=== PATIENT | female | born 1955 | race Caucasian/White ===

== ENCOUNTER 2017-06-30 17:22 | Inpatient (IN) | payer MEDICARE, MEDICAID ==
[~2017-06-30] VITALS: Ht 5283.9 cm; Wt 73.4 kg
[~2017-06-30 17:22] MED LIST: ASCO500C6 PO; CALC0.2536 PO; CRAN200C5 PO; DEXT1CAP3 PO; DIAZ5TAB PO; DOCU-28 PO; ESCI5TAB PO; GABA600T2 PO; KEP500T PO; LACT1CAP57 PO; LEVO125T PO; LOP25T PO; LURA120T PO; METH1TAB32 PO; MULT-1085 PO; NITR100C6 PO; OMEP-84 PO; POLY17PO10 PO; QUET-1 PO; QUET300T3 PO
[2017-06-30] MEDS ORDERED: normal saline 1000ML IV soln IV ONE (18:20)
[2017-06-30 18:40] LABS: BASOPHILS # (AUTO) 0.1 X10'3 (0-0.2); BASOPHILS % (AUTO) 0.3 % (0-1); EOSINOPHILS % (AUTO) 0.2 % (0-6); HEMATOCRIT 40.1 % (35.0-45.0); HEMOGLOBIN 13.4 g/dl (12.0-16.0); LYMPHOCYTES % (AUTO) 6.5 % (21-51); MEAN CORPUSCULAR HEMOGLOBIN 31.3 PG (27.0-31.0); MEAN CORPUSCULAR HGB CONC 33.4 % (33.0-36.5); MEAN CORPUSCULAR VOLUME 93.6 FL (78-98); MONOCYTES # (AUTO) 0.4 X10'3 (0-0.9); MONOCYTES % (AUTO) 2.9 % (2-12); NEUTROPHILS % (AUTO) 90.1 % (42-75); PLATELET COUNT 344 X10'3 (140-440); RED BLOOD COUNT 4.28 X10'6 (4.20-5.60); RED CELL DISTRIBUTION WIDTH 15.6 % (11.5-14.5); WHITE BLOOD COUNT 15.6 X10'3 (4.5-11.0)
[2017-06-30 18:57] LABS: ALANINE AMINOTRANSFERASE 25 U/L (12-78); ALBUMIN/GLOBULIN RATIO 0.5 (1.1-1.5); ASPARTATE AMINO TRANSFERASE 19 U/L (10-37); BILIRUBIN,TOTAL 0.3 MG/DL (0.1-1.0); BLOOD UREA NITROGEN 51 MG/DL (7-18); BUN/CREATININE RATIO 32.5 (6.6-38.0); CALCIUM 9.7 MG/DL (8.5-10.1); CHLORIDE 107 MMOL/L (99-107); CREATININE 1.57 MG/DL (0.40-0.90); GLUCOSE 140 MG/DL (70-104); MAGNESIUM 2.6 MG/DL (1.5-2.4); TOTAL CARBON DIOXIDE 28.5 MMOL/L (24-32); TOTAL PROTEIN 9.6 G/DL (6.4-8.2); eGFR 33 ML/MIN
[2017-06-30 18:59] LABS: ANION GAP 10 (8-16); SODIUM 145 MMOL/L (135-145)
[2017-06-30 19:26] LABS: CLARITY,URINE SLIGHTLY CLOUDY (Clear); COLOR,URINE YELLOW (Yellow); GLUCOSE, URINE NEGATIVE (Neg); KETONES,URINE NEGATIVE (Neg); LEUKOCYTE ESTERASE ,URINE NEGATIVE (Neg); NITRITES, URINE NEGATIVE (Neg); OCCULT BLOOD,URINE TRACE-INTACT (Neg); PROTEIN,URINE 30 mg/dl (Neg); UROBILINOGEN,URINE 0.2 E.U/dL (0.2-1.0)
[2017-06-30 19:27] LABS: UA COLLECTION TYPE STRAIGHT CATH
[2017-06-30] MEDS ORDERED: piperacillin/tazo 3.375gm/50ml 50 ML IV ONE (19:30)
[2017-06-30 19:40] LABS: BACTERIA,URINE NONE SEEN /HPF (Neg); SQUAMOUS EPITHELIAL CELL,UR MODERATE /LPF (FEW); WBC,URINE 0-4 /HPF (0-4)
[2017-06-30 19:41] LABS: MUCUS STRANDS FEW /LPF (Neg); TRANSITIONAL EPI CELLS,URINE MANY /HPF
[2017-06-30 20:20] LABS: ALKALINE PHOSPHATASE 109 IU/L (46-116)
[2017-06-30] MEDS ORDERED: ipratropium/albuterol 3ml nebule NEB PRN (20:25)
[2017-06-30] MEDS ORDERED: mag hydrox/Alum hydrox/simeth 30ml oral suspension PO PRN (20:25)
[2017-06-30] MEDS ORDERED: magnesium 2GM in 50ml NS 50 ML IV PRN (20:25)
[2017-06-30] MEDS ORDERED: magnesium Cl slow-release 64mg tablet PO PRN (20:25)
[2017-06-30] MEDS ORDERED: potassium Cl 40MEQ/NS 500ml 500 ML IV PRN ×2 (20:25)
[2017-06-30] MEDS ORDERED: acetaminophen 325mg tablet PO PRN (20:25)
[2017-06-30] MEDS ORDERED: albuterol 2.5 MG/3 ML nebule NEB PRN (20:25)
[2017-06-30] MEDS ORDERED: magnesium hydroxide 30ml (MOM) UD suspension PO PRN (20:25)
[2017-06-30] MEDS ORDERED: potassium Cl 20 mEq SR tablet PO PRN ×2 (20:25)
[2017-06-30] MEDS ORDERED: ondansetron/PF 4mg/2ml inj IV PRN (20:25)
[2017-06-30] MEDS ORDERED: magnesium 4gm in 100ml NS 100 ML IV PRN (20:25)
[2017-06-30] MEDS ORDERED: normal saline 1000ml 1,000 ML IV ONE (20:30)
[2017-06-30] MEDS: metoprolol tartrate 25mg tablet PO SCH (20:30)
[2017-06-30 20:31] LABS: TOTAL CELLS COUNTED 100
[2017-06-30 20:32] LABS: ANISOCYTOSIS 1+; PLATELET ESTIMATE NORMAL
[2017-06-30] MEDS: gabapentin 300mg capsule PO SCH (21:00)
[2017-06-30] MEDS ORDERED: diazepam 5mg tablet PO PRN (21:00)
[2017-06-30] MEDS: normal saline 1000ml 1,000 ML IV SCH (21:59)
[2017-06-30] MEDS: levetiracetam 250mg tablet PO SCH (22:38)
[2017-06-30] MEDS: quetiapine 100mg tablet PO SCH (22:41)
[2017-07-01] MEDS: K and/or MAG REPLACEMENT MC SCH (07:10)
[2017-07-01] MEDS: normal saline 1000ml 1,000 ML IV SCH (07:25)
[2017-07-01 07:26] LABS: BASOPHILS % (AUTO) 0.3 % (0-1); EOSINOPHILS # (AUTO) 0.1 X10'3 (0-0.9); EOSINOPHILS % (AUTO) 0.9 % (0-6); HEMATOCRIT 31.8 % (35.0-45.0); HEMOGLOBIN 10.6 g/dl (12.0-16.0); LYMPHOCYTES # (AUTO) 0.8 X10'3 (1.1-4.8); LYMPHOCYTES % (AUTO) 5.2 % (21-51); MEAN CORPUSCULAR HEMOGLOBIN 31.3 PG (27.0-31.0); MEAN CORPUSCULAR HGB CONC 33.2 % (33.0-36.5); MEAN CORPUSCULAR VOLUME 94.1 FL (78-98); MEAN PLATELET VOLUME 8.6 FL (7.4-10.4); MONOCYTES # (AUTO) 0.6 X10'3 (0-0.9); MONOCYTES % (AUTO) 3.7 % (2-12); NEUTROPHILS # (AUTO) 13.3 X10'3 (1.8-7.7); NEUTROPHILS % (AUTO) 89.9 % (42-75); PLATELET COUNT 274 X10'3 (140-440); RED BLOOD COUNT 3.38 X10'6 (4.20-5.60); RED CELL DISTRIBUTION WIDTH 15.5 % (11.5-14.5); WHITE BLOOD COUNT 14.8 X10'3 (4.5-11.0)
[2017-07-01] MEDS: piperacillin/tazo 4.5gm/100ml 100 ML IV SCH ×2 (07:26)
[2017-07-01] MEDS: levetiracetam 250mg tablet PO SCH ×3 (07:27→19:51)
[2017-07-01] MEDS: gabapentin 300mg capsule PO SCH ×3 (07:27→19:51)
[2017-07-01] MEDS: lactobacillus rhamnosus 10,000 MMU CELLS/CAPSULE PO SCH (07:28)
[2017-07-01] MEDS: metoprolol tartrate 25mg tablet PO SCH ×2 (07:28→19:51)
[2017-07-01] MEDS: diazepam 5mg tablet PO SCH (07:28)
[2017-07-01] MEDS: citalopram 20mg tablet PO SCH (07:28)
[2017-07-01] MEDS: pantoprazole 40mg Tablet.DR PO SCH (07:28)
[2017-07-01] MEDS: docusate sod 250mg capsule PO SCH ×2 (07:28→19:50)
[2017-07-01] MEDS: polyethylene glycol 3350 17gm powd pack PO SCH (07:29)
[2017-07-01] MEDS: heparin, porcine 5000 units/ml vial SQ SCH ×2 (07:31→19:53)
[2017-07-01 07:41] LABS: ALANINE AMINOTRANSFERASE 18 U/L (12-78); ALBUMIN 2.1 G/DL (3.4-5.0); ALBUMIN/GLOBULIN RATIO 0.4 (1.1-1.5); ALKALINE PHOSPHATASE 83 IU/L (46-116); ANION GAP 5 (8-16); ASPARTATE AMINO TRANSFERASE 13 U/L (10-37); BILIRUBIN,TOTAL 0.3 MG/DL (0.1-1.0); BLOOD UREA NITROGEN 35 MG/DL (7-18); BUN/CREATININE RATIO 39.8 (6.6-38.0); CALCIUM 8.1 MG/DL (8.5-10.1); CHLORIDE 115 MMOL/L (99-107); CREATININE 0.88 MG/DL (0.40-0.90); GLUCOSE 119 MG/DL (70-104); MAGNESIUM 2.3 MG/DL (1.5-2.4); POTASSIUM 4.1 MMOL/L (3.5-5.1); SODIUM 149 MMOL/L (135-145); TOTAL CARBON DIOXIDE 28.6 MMOL/L (24-32); TOTAL PROTEIN 7.2 G/DL (6.4-8.2); eGFR 65 ML/MIN
[2017-07-01] MEDS: QUETIAPINE 150 MG TAB.SR.24H PO SCH (08:13)
[2017-07-01] MEDS: lurasidone 60mg tablet PO SCH (08:13)
[2017-07-01] MEDS: methenamine hippurate 1gm tablet PO SCH ×2 (08:13→19:51)
[2017-07-01 12:13] VITALS: BP 103/61
[2017-07-01] MEDS: sodium chloride 0.45% 1,000 ML IV SCH (13:33)
[2017-07-01] MEDS: levoFLOXACIN-Levaquin 750MG/D5 150 ML IV SCH (15:29)
[2017-07-01] MEDS ORDERED: pneumococcal 23-VAL P-sac vacc 25 mcg/0.5ml vial IMVAC ONE (16:00)
[2017-07-01] MEDS: metroNIDAZOLE-Flagyl 500mg/NS 100 ML IV SCH ×2 (17:17→23:59)
[2017-07-01 18:00] VITALS: BP 130/67
[2017-07-01] MEDS: quetiapine 100mg tablet PO SCH (19:51)
[2017-07-01 23:30] VITALS: BP 124/69
[2017-07-02] MEDS: sodium chloride 0.45% 1,000 ML IV SCH ×2 (01:51→05:35)
[2017-07-02 05:17] LABS: BASOPHILS % (AUTO) 0.3 % (0-1); EOSINOPHILS # (AUTO) 0.3 X10'3 (0-0.9); EOSINOPHILS % (AUTO) 3.4 % (0-6); HEMATOCRIT 29.2 % (35.0-45.0); HEMOGLOBIN 9.7 g/dl (12.0-16.0); LYMPHOCYTES % (AUTO) 11.9 % (21-51); MEAN CORPUSCULAR HEMOGLOBIN 31.3 PG (27.0-31.0); MEAN CORPUSCULAR HGB CONC 33.2 % (33.0-36.5); MEAN CORPUSCULAR VOLUME 94.3 FL (78-98); MEAN PLATELET VOLUME 9.3 FL (7.4-10.4); MONOCYTES # (AUTO) 0.5 X10'3 (0-0.9); MONOCYTES % (AUTO) 5.3 % (2-12); NEUTROPHILS # (AUTO) 6.8 X10'3 (1.8-7.7); NEUTROPHILS % (AUTO) 79.1 % (42-75); PLATELET COUNT 235 X10'3 (140-440); RED CELL DISTRIBUTION WIDTH 15.4 % (11.5-14.5); WHITE BLOOD COUNT 8.6 X10'3 (4.5-11.0)
[2017-07-02 05:42] LABS: ALANINE AMINOTRANSFERASE 16 U/L (12-78); ALBUMIN 1.9 G/DL (3.4-5.0); ALBUMIN/GLOBULIN RATIO 0.4 (1.1-1.5); ALKALINE PHOSPHATASE 89 IU/L (46-116); ANION GAP 6 (8-16); ASPARTATE AMINO TRANSFERASE 12 U/L (10-37); BILIRUBIN,TOTAL 0.2 MG/DL (0.1-1.0); BLOOD UREA NITROGEN 26 MG/DL (7-18); BUN/CREATININE RATIO 38.8 (6.6-38.0); CHLORIDE 111 MMOL/L (99-107); CREATININE 0.67 MG/DL (0.40-0.90); GLUCOSE 95 MG/DL (70-104); MAGNESIUM 2.1 MG/DL (1.5-2.4); POTASSIUM 3.4 MMOL/L (3.5-5.1); SODIUM 146 MMOL/L (135-145); TOTAL CARBON DIOXIDE 29.4 MMOL/L (24-32); TOTAL PROTEIN 6.7 G/DL (6.4-8.2); eGFR 89 ML/MIN
[2017-07-02 07:00] VITALS: BP 131/66
[2017-07-02] MEDS: pantoprazole 40mg Tablet.DR PO SCH (08:00)
[2017-07-02] MEDS: diazepam 5mg tablet PO SCH (08:00)
[2017-07-02] MEDS: metoprolol tartrate 25mg tablet PO SCH ×2 (08:00→20:00)
[2017-07-02] MEDS: lurasidone 60mg tablet PO SCH (08:00)
[2017-07-02] MEDS: methenamine hippurate 1gm tablet PO SCH ×2 (08:00→20:00)
[2017-07-02] MEDS: docusate sod 250mg capsule PO SCH ×2 (08:00→20:00)
[2017-07-02] MEDS: citalopram 20mg tablet PO SCH (08:00)
[2017-07-02] MEDS: lactobacillus rhamnosus 10,000 MMU CELLS/CAPSULE PO SCH (08:00)
[2017-07-02] MEDS: polyethylene glycol 3350 17gm powd pack PO SCH (08:00)
[2017-07-02] MEDS: QUETIAPINE 150 MG TAB.SR.24H PO SCH (08:00)
[2017-07-02] MEDS: levetiracetam 250mg tablet PO SCH ×3 (08:00→21:00)
[2017-07-02] MEDS: gabapentin 300mg capsule PO SCH ×3 (08:00→21:00)
[2017-07-02] MEDS: K and/or MAG REPLACEMENT MC SCH (08:00)
[2017-07-02] MEDS: levoFLOXACIN-Levaquin 750MG/D5 150 ML IV SCH (08:38)
[2017-07-02] MEDS: heparin, porcine 5000 units/ml vial SQ SCH ×2 (08:58→19:34)
[2017-07-02] MEDS: metroNIDAZOLE-Flagyl 500mg/NS 100 ML IV SCH ×3 (10:12→23:24)
[2017-07-02 11:00] VITALS: BP 96/59
[2017-07-02 18:00] VITALS: BP 156/118
[2017-07-02] MEDS: quetiapine 100mg tablet PO SCH (21:00)
[2017-07-03] VITALS: BP 163/80
[2017-07-03] MEDS ORDERED: LORazepam 2 mg/ml vial IV ONE (00:20)
[2017-07-03] MEDS: sodium chloride 0.45% 1,000 ML IV SCH ×2 (03:00→10:51)
[2017-07-03 07:42] LABS: ALANINE AMINOTRANSFERASE 19 U/L (12-78); ALBUMIN 2.3 G/DL (3.4-5.0); ALBUMIN/GLOBULIN RATIO 0.4 (1.1-1.5); ALKALINE PHOSPHATASE 97 IU/L (46-116); ANION GAP 9 (8-16); ASPARTATE AMINO TRANSFERASE 18 U/L (10-37); BILIRUBIN,TOTAL 0.3 MG/DL (0.1-1.0); BLOOD UREA NITROGEN 16 MG/DL (7-18); BUN/CREATININE RATIO 26.2 (6.6-38.0); CALCIUM 8.9 MG/DL (8.5-10.1); CHLORIDE 111 MMOL/L (99-107); CREATININE 0.61 MG/DL (0.40-0.90); GLUCOSE 97 MG/DL (70-104); MAGNESIUM 2.2 MG/DL (1.5-2.4); POTASSIUM 4.1 MMOL/L (3.5-5.1); SODIUM 147 MMOL/L (135-145); TOTAL CARBON DIOXIDE 26.8 MMOL/L (24-32); TOTAL PROTEIN 7.8 G/DL (6.4-8.2); eGFR > 90 ML/MIN
[2017-07-03 07:51] VITALS: BP 180/88
[2017-07-03] MEDS: levetiracetam 250mg tablet PO SCH ×3 (08:00→21:00)
[2017-07-03] MEDS: K and/or MAG REPLACEMENT MC SCH (08:00)
[2017-07-03] MEDS: methenamine hippurate 1gm tablet PO SCH ×2 (08:00→20:00)
[2017-07-03] MEDS: pantoprazole 40mg Tablet.DR PO SCH (08:00)
[2017-07-03] MEDS: heparin, porcine 5000 units/ml vial SQ SCH ×2 (08:00→22:17)
[2017-07-03] MEDS: metoprolol tartrate 25mg tablet PO SCH ×2 (08:00→20:00)
[2017-07-03] MEDS: QUETIAPINE 150 MG TAB.SR.24H PO SCH (08:00)
[2017-07-03] MEDS: polyethylene glycol 3350 17gm powd pack PO SCH (08:00)
[2017-07-03] MEDS: citalopram 20mg tablet PO SCH (08:00)
[2017-07-03] MEDS: diazepam 5mg tablet PO SCH (08:00)
[2017-07-03] MEDS: gabapentin 300mg capsule PO SCH ×3 (08:00→21:00)
[2017-07-03] MEDS: lurasidone 60mg tablet PO SCH (08:00)
[2017-07-03] MEDS: lactobacillus rhamnosus 10,000 MMU CELLS/CAPSULE PO SCH (08:00)
[2017-07-03] MEDS: docusate sod 250mg capsule PO SCH ×2 (08:00→20:00)
[2017-07-03] MEDS: metroNIDAZOLE-Flagyl 500mg/NS 100 ML IV SCH ×2 (10:04→16:04)
[2017-07-03] MEDS: LORazepam 2 mg/ml vial IV PRN ×2 (10:50→22:17)
[2017-07-03] MEDS: levoFLOXACIN-Levaquin 750MG/D5 150 ML IV SCH (10:54)
[2017-07-03 13:26] VITALS: BP 162/79
[2017-07-03 18:00] VITALS: BP 148/90
[2017-07-03] MEDS: quetiapine 100mg tablet PO SCH (21:00)
[2017-07-04] VITALS (8 sets, daily range): BP systolic 103–160; BP diastolic 74–101
[2017-07-04] MEDS: metroNIDAZOLE-Flagyl 500mg/NS 100 ML IV SCH ×3 (00:33→17:25)
[2017-07-04] MEDS: sodium chloride 0.45% 1,000 ML IV SCH (00:34)
[2017-07-04 04:57] LABS: ALANINE AMINOTRANSFERASE 20 U/L (12-78); ALBUMIN 2.5 G/DL (3.4-5.0); ALBUMIN/GLOBULIN RATIO 0.4 (1.1-1.5); ALKALINE PHOSPHATASE 102 IU/L (46-116); ANION GAP 14 (8-16); ASPARTATE AMINO TRANSFERASE 18 U/L (10-37); BILIRUBIN,TOTAL 0.3 MG/DL (0.1-1.0); BLOOD UREA NITROGEN 12 MG/DL (7-18); BUN/CREATININE RATIO 16.4 (6.6-38.0); CALCIUM 8.9 MG/DL (8.5-10.1); CHLORIDE 108 MMOL/L (99-107); CREATININE 0.73 MG/DL (0.40-0.90); GLUCOSE 85 MG/DL (70-104); POTASSIUM 3.8 MMOL/L (3.5-5.1); SODIUM 147 MMOL/L (135-145); TOTAL CARBON DIOXIDE 24.9 MMOL/L (24-32); TOTAL PROTEIN 8.2 G/DL (6.4-8.2); eGFR 81 ML/MIN
[2017-07-04] MEDS: QUETIAPINE 150 MG TAB.SR.24H PO SCH (08:00)
[2017-07-04] MEDS: diazepam 5mg tablet PO SCH (08:00)
[2017-07-04] MEDS: methenamine hippurate 1gm tablet PO SCH ×2 (08:00→20:00)
[2017-07-04] MEDS: levetiracetam 250mg tablet PO SCH ×3 (08:00→20:44)
[2017-07-04] MEDS: docusate sod 250mg capsule PO SCH ×2 (08:00→20:00)
[2017-07-04] MEDS: K and/or MAG REPLACEMENT MC SCH (08:00)
[2017-07-04] MEDS: gabapentin 300mg capsule PO SCH ×3 (08:00→20:45)
[2017-07-04] MEDS: pantoprazole 40mg Tablet.DR PO SCH (08:00)
[2017-07-04] MEDS: heparin, porcine 5000 units/ml vial SQ SCH ×2 (08:00→19:53)
[2017-07-04] MEDS: levoFLOXACIN-Levaquin 750MG/D5 150 ML IV SCH (08:00)
[2017-07-04] MEDS: metoprolol tartrate 25mg tablet PO SCH ×2 (08:00→20:00)
[2017-07-04] MEDS: citalopram 20mg tablet PO SCH (08:00)
[2017-07-04] MEDS: lurasidone 60mg tablet PO SCH (08:00)
[2017-07-04] MEDS: polyethylene glycol 3350 17gm powd pack PO SCH (08:00)
[2017-07-04] MEDS: lactobacillus rhamnosus 10,000 MMU CELLS/CAPSULE PO SCH (08:00)
[2017-07-04] MEDS ORDERED: MIDAZolam 5mg/5ml vial IV PRN (13:30)
[2017-07-04] MEDS ORDERED: MIDAZolam 5mg/ml 2ml vial ONE (13:30)
[2017-07-04] MEDS ORDERED: fentaNYL/PF 50MCG/1 ML 2ML syringe ONE (13:30)
[2017-07-04] MEDS ORDERED: fentaNYL/PF 50MCG/1 ML 2ML syringe IV PRN (13:30)
[2017-07-04] MEDS ORDERED: LIDOcaine Viscous 15ml cup ONE (13:31)
[2017-07-04] MEDS ORDERED: haloperidol lactate 5mg/ml inj IM PRN (16:55)
[2017-07-04] MEDS: pantoprazole 40 MG vial IV SCH ×2 (17:22→19:53)
[2017-07-04] MEDS: Potassium Cl inj 20 MEQ in dextrose 5%-water 990 ML IV SCH (19:54)
[2017-07-04] MEDS: quetiapine 100mg tablet PO SCH (20:45)
[2017-07-05] VITALS: BP 130/67
[2017-07-05] MEDS: metroNIDAZOLE-Flagyl 500mg/NS 100 ML IV SCH ×4 (00:23→23:21)
[2017-07-05] MEDS: quetiapine 100mg tablet PO SCH ×2 (03:12→20:22)
[2017-07-05 05:55] LABS: ALANINE AMINOTRANSFERASE 23 U/L (12-78); ALBUMIN 2.4 G/DL (3.4-5.0); ALBUMIN/GLOBULIN RATIO 0.5 (1.1-1.5); ALKALINE PHOSPHATASE 287 IU/L (46-116); ANION GAP 11 (8-16); ASPARTATE AMINO TRANSFERASE 26 U/L (10-37); BILIRUBIN,TOTAL 0.4 MG/DL (0.1-1.0); BLOOD UREA NITROGEN 13 MG/DL (7-18); BUN/CREATININE RATIO 19.4 (6.6-38.0); CALCIUM 8.3 MG/DL (8.5-10.1); CHLORIDE 106 MMOL/L (99-107); CREATININE 0.67 MG/DL (0.40-0.90); GLUCOSE 100 MG/DL (70-104); MAGNESIUM 2.1 MG/DL (1.5-2.4); POTASSIUM 3.4 MMOL/L (3.5-5.1); SODIUM 143 MMOL/L (135-145); TOTAL CARBON DIOXIDE 26.4 MMOL/L (24-32); TOTAL PROTEIN 7.6 G/DL (6.4-8.2); eGFR 89 ML/MIN
[2017-07-05] MEDS: heparin, porcine 5000 units/ml vial SQ SCH ×2 (08:00→20:16)
[2017-07-05] MEDS: K and/or MAG REPLACEMENT MC SCH (08:00)
[2017-07-05] MEDS: docusate sod 250mg capsule PO SCH ×2 (08:00→20:00)
[2017-07-05] MEDS: levetiracetam 250mg tablet PO SCH ×2 (08:00→20:20)
[2017-07-05] MEDS: metoprolol tartrate 25mg tablet PO SCH ×2 (08:00→20:00)
[2017-07-05] MEDS: polyethylene glycol 3350 17gm powd pack PO SCH (08:00)
[2017-07-05] MEDS: gabapentin 300mg capsule PO SCH ×2 (08:00→20:20)
[2017-07-05] MEDS: methenamine hippurate 1gm tablet PO SCH ×2 (08:00→20:00)
[2017-07-05] MEDS: lactobacillus rhamnosus 10,000 MMU CELLS/CAPSULE PO SCH (08:00)
[2017-07-05] MEDS: QUETIAPINE 150 MG TAB.SR.24H PO SCH (08:00)
[2017-07-05] MEDS: lurasidone 60mg tablet PO SCH (08:00)
[2017-07-05] MEDS: pantoprazole 40 MG vial IV SCH ×2 (08:00→20:11)
[2017-07-05] MEDS: citalopram 20mg tablet PO SCH (08:00)
[2017-07-05] MEDS: diazepam 5mg tablet PO SCH (08:00)
[2017-07-05 08:10] VITALS: BP 150/108
[2017-07-05] MEDS: levoFLOXACIN-Levaquin 750MG/D5 150 ML IV SCH (09:33)
[2017-07-05 10:26] VITALS: BP 173/89
[2017-07-05 12:00] VITALS: BP 123/78
[2017-07-05] MEDS ORDERED: potassium Cl 40MEQ/NS 500ml 500 ML IV PRN ×2 (12:00)
[2017-07-05] MEDS: Potassium Cl inj 20 MEQ in dextrose 5%-water 990 ML IV SCH ×3 (12:38→23:21)
[2017-07-05] MEDS ORDERED: LORazepam 2 mg/ml vial IV PRN (17:25)
[2017-07-05 20:00] VITALS: BP 169/86
[2017-07-05] MEDS: ziprasidone IM 20mg inj **IM only IM SCH (20:00)
[2017-07-06] VITALS: BP 140/74
[2017-07-06 05:55] LABS: POTASSIUM 3.6 MMOL/L (3.5-5.1)
[2017-07-06 07:16] VITALS: BP 142/61
[2017-07-06] MEDS: citalopram 20mg tablet PO SCH (08:00)
[2017-07-06] MEDS: diazepam 5mg tablet PO SCH (08:00)
[2017-07-06] MEDS: docusate sod 250mg capsule PO SCH ×2 (08:00→20:00)
[2017-07-06] MEDS: K and/or MAG REPLACEMENT MC SCH (08:00)
[2017-07-06] MEDS: ziprasidone IM 20mg inj **IM only IM SCH ×3 (08:00→20:36)
[2017-07-06] MEDS: methenamine hippurate 1gm tablet PO SCH ×2 (08:00→20:00)
[2017-07-06] MEDS: lurasidone 60mg tablet PO SCH (08:00)
[2017-07-06] MEDS: QUETIAPINE 150 MG TAB.SR.24H PO SCH (08:00)
[2017-07-06] MEDS: lactobacillus rhamnosus 10,000 MMU CELLS/CAPSULE PO SCH (08:00)
[2017-07-06] MEDS: metoprolol tartrate 25mg tablet PO SCH ×2 (08:00→20:00)
[2017-07-06] MEDS: heparin, porcine 5000 units/ml vial SQ SCH ×2 (08:00→20:41)
[2017-07-06] MEDS: levetiracetam 250mg tablet PO SCH ×3 (08:00→20:55)
[2017-07-06] MEDS: gabapentin 300mg capsule PO SCH ×3 (08:00→20:54)
[2017-07-06] MEDS: polyethylene glycol 3350 17gm powd pack PO SCH (08:00)
[2017-07-06] MEDS: pantoprazole 40 MG vial IV SCH ×2 (08:28→20:36)
[2017-07-06] MEDS: metroNIDAZOLE-Flagyl 500mg/NS 100 ML IV SCH ×2 (08:30→15:11)
[2017-07-06] MEDS: levoFLOXACIN-Levaquin 750MG/D5 150 ML IV SCH (09:59)
[2017-07-06 12:00] VITALS: BP 155/62
[2017-07-06 12:23] VITALS: BP 155/62
[2017-07-06] MEDS: quetiapine 100mg tablet PO SCH ×2 (14:00→20:55)
[2017-07-06] MEDS: Potassium Cl inj 20 MEQ in dextrose 5%-water 990 ML IV SCH (15:10)
[2017-07-06] MEDS: Protein Shake (high protein) 240ml (8oz) cup PO SCH (18:00)
[2017-07-06 20:00] VITALS: BP 144/84
[2017-07-07] VITALS: BP 158/77
[2017-07-07] MEDS: metroNIDAZOLE-Flagyl 500mg/NS 100 ML IV SCH ×3 (00:11→16:28)
[2017-07-07] MEDS: Potassium Cl inj 20 MEQ in dextrose 5%-water 990 ML IV SCH (05:23)
[2017-07-07 06:35] LABS: ALBUMIN 2.4 G/DL (3.4-5.0); ANION GAP 9 (8-16); BLOOD UREA NITROGEN 8 MG/DL (7-18); BUN/CREATININE RATIO 12.7 (6.6-38.0); CALCIUM 8.5 MG/DL (8.5-10.1); CHLORIDE 103 MMOL/L (99-107); CREATININE 0.63 MG/DL (0.40-0.90); GLUCOSE 111 MG/DL (70-104); MAGNESIUM 1.8 MG/DL (1.5-2.4); POTASSIUM 3.4 MMOL/L (3.5-5.1); SODIUM 140 MMOL/L (135-145); eGFR > 90 ML/MIN
[2017-07-07 07:40] VITALS: BP 131/71
[2017-07-07 07:42] VITALS: BP 131/71
[2017-07-07] MEDS: levetiracetam 250mg tablet PO SCH ×3 (08:00→21:00)
[2017-07-07] MEDS: metoprolol tartrate 25mg tablet PO SCH ×2 (08:00→19:46)
[2017-07-07] MEDS: gabapentin 300mg capsule PO SCH ×3 (08:00→21:00)
[2017-07-07] MEDS: Protein Shake (high protein) 240ml (8oz) cup PO SCH ×3 (08:00→18:00)
[2017-07-07] MEDS: polyethylene glycol 3350 17gm powd pack PO SCH (08:00)
[2017-07-07] MEDS: lurasidone 60mg tablet PO SCH (08:00)
[2017-07-07] MEDS: lactobacillus rhamnosus 10,000 MMU CELLS/CAPSULE PO SCH (08:00)
[2017-07-07] MEDS: K and/or MAG REPLACEMENT MC SCH (08:00)
[2017-07-07] MEDS: methenamine hippurate 1gm tablet PO SCH ×2 (08:00→19:45)
[2017-07-07] MEDS: citalopram 20mg tablet PO SCH (08:00)
[2017-07-07] MEDS: docusate sod 250mg capsule PO SCH ×2 (08:00→19:47)
[2017-07-07] MEDS: diazepam 5mg tablet PO SCH (08:00)
[2017-07-07] MEDS: heparin, porcine 5000 units/ml vial SQ SCH ×2 (08:00→19:30)
[2017-07-07] MEDS: QUETIAPINE 150 MG TAB.SR.24H PO SCH (08:00)
[2017-07-07] MEDS: pantoprazole 40 MG vial IV SCH ×2 (10:21→19:28)
[2017-07-07] MEDS: ziprasidone IM 20mg inj **IM only IM SCH ×2 (10:24→19:28)
[2017-07-07 11:00] VITALS: BP 158/87
[2017-07-07] MEDS: levoFLOXACIN-Levaquin 750MG/D5 150 ML IV SCH (11:45)
[2017-07-07] MEDS ORDERED: Dextrose 10%-water IV solution 1,000 ML IV PRN (13:12)
[2017-07-07] MEDS ORDERED: fat emulsion IV 181.82 ML, MVI, adult No.4 with vit. K 4.55 ML, Trace element-5 inj. 0.... IV SCH ×4 (13:12)
[2017-07-07] MEDS ORDERED: magnesium 4gm in 100ml NS 100 ML IV PRN (13:15)
[2017-07-07] MEDS ORDERED: magnesium 2GM in 50ml NS 50 ML IV PRN (13:15)
[2017-07-07] MEDS ORDERED: magnesium Cl slow-release 64mg tablet PO PRN (13:15)
[2017-07-07 13:55] LABS: ALANINE AMINOTRANSFERASE 20 U/L (12-78); ALBUMIN 2.6 G/DL (3.4-5.0); ALBUMIN/GLOBULIN RATIO 0.5 (1.1-1.5); ALKALINE PHOSPHATASE 201 IU/L (46-116); ANION GAP 10 (8-16); ASPARTATE AMINO TRANSFERASE 23 U/L (10-37); BILIRUBIN,TOTAL 0.3 MG/DL (0.1-1.0); BLOOD UREA NITROGEN 8 MG/DL (7-18); BUN/CREATININE RATIO 12.1 (6.6-38.0); CALCIUM 8.7 MG/DL (8.5-10.1); CHLORIDE 103 MMOL/L (99-107); CREATININE 0.66 MG/DL (0.40-0.90); GLUCOSE 126 MG/DL (70-104); MAGNESIUM 1.8 MG/DL (1.5-2.4); PHOSPHORUS 2.7 MG/DL (2.3-4.5); POTASSIUM 3.4 MMOL/L (3.5-5.1); PREALBUMIN 15.1 MG/DL (19-36); SODIUM 139 MMOL/L (135-145); TRIGLYCERIDES 106 MG/DL (20-135); eGFR 90 ML/MIN
[2017-07-07] MEDS: quetiapine 100mg tablet PO SCH ×2 (14:00→21:00)
[2017-07-07 20:00] VITALS: BP 125/71
[2017-07-08] VITALS: BP 159/80
[2017-07-08] MEDS: metroNIDAZOLE-Flagyl 500mg/NS 100 ML IV SCH ×3 (00:58→15:36)
[2017-07-08 06:42] LABS: ALANINE AMINOTRANSFERASE 18 U/L (12-78); ALBUMIN 2.5 G/DL (3.4-5.0); ALBUMIN/GLOBULIN RATIO 0.5 (1.1-1.5); ALKALINE PHOSPHATASE 165 IU/L (46-116); ANION GAP 9 (8-16); ASPARTATE AMINO TRANSFERASE 14 U/L (10-37); BILIRUBIN,TOTAL 0.3 MG/DL (0.1-1.0); BLOOD UREA NITROGEN 8 MG/DL (7-18); BUN/CREATININE RATIO 11.9 (6.6-38.0); CALCIUM 8.5 MG/DL (8.5-10.1); CHLORIDE 107 MMOL/L (99-107); CREATININE 0.67 MG/DL (0.40-0.90); GLUCOSE 110 MG/DL (70-104); MAGNESIUM 1.8 MG/DL (1.5-2.4); PHOSPHORUS 2.9 MG/DL (2.3-4.5); POTASSIUM 3.7 MMOL/L (3.5-5.1); SODIUM 141 MMOL/L (135-145); TOTAL CARBON DIOXIDE 24.9 MMOL/L (24-32); TOTAL PROTEIN 7.3 G/DL (6.4-8.2); eGFR 89 ML/MIN
[2017-07-08] MEDS: lurasidone 60mg tablet PO SCH (08:00)
[2017-07-08] MEDS: methenamine hippurate 1gm tablet PO SCH ×2 (08:00→20:00)
[2017-07-08] MEDS: docusate sod 250mg capsule PO SCH ×2 (08:00→20:00)
[2017-07-08] MEDS: diazepam 5mg tablet PO SCH (08:00)
[2017-07-08] MEDS: K and/or MAG REPLACEMENT MC SCH (08:00)
[2017-07-08] MEDS: Protein Shake (high protein) 240ml (8oz) cup PO SCH ×3 (08:00→18:00)
[2017-07-08] MEDS: polyethylene glycol 3350 17gm powd pack PO SCH (08:00)
[2017-07-08] MEDS: citalopram 20mg tablet PO SCH (08:00)
[2017-07-08] MEDS: lactobacillus rhamnosus 10,000 MMU CELLS/CAPSULE PO SCH (08:00)
[2017-07-08] MEDS: QUETIAPINE 150 MG TAB.SR.24H PO SCH (08:00)
[2017-07-08] MEDS: levetiracetam 250mg tablet PO SCH ×3 (08:00→20:42)
[2017-07-08] MEDS: metoprolol tartrate 25mg tablet PO SCH ×2 (08:00→20:00)
[2017-07-08] MEDS: gabapentin 300mg capsule PO SCH ×3 (08:00→20:42)
[2017-07-08] MEDS: ziprasidone IM 20mg inj **IM only IM SCH ×2 (09:39→20:23)
[2017-07-08] MEDS: pantoprazole 40 MG vial IV SCH ×2 (09:39→20:24)
[2017-07-08 11:00] VITALS: BP 177/78
[2017-07-08] MEDS: levoFLOXACIN-Levaquin 750MG/D5 150 ML IV SCH (11:31)
[2017-07-08] MEDS: heparin, porcine 5000 units/ml vial SQ SCH ×2 (11:31→20:24)
[2017-07-08 20:00] VITALS: BP 162/84
[2017-07-08] MEDS: nystatin 15 GM powder TP SCH (20:24)
[2017-07-08] MEDS: quetiapine 100mg tablet PO SCH (20:42)
[2017-07-09] VITALS: BP 136/70
[2017-07-09] MEDS: metroNIDAZOLE-Flagyl 500mg/NS 100 ML IV SCH ×3 (00:01→16:30)
[2017-07-09 05:30] LABS: BASOPHILS % (AUTO) 0.4 % (0-1); EOSINOPHILS # (AUTO) 0.3 X10'3 (0-0.9); EOSINOPHILS % (AUTO) 3.5 % (0-6); HEMATOCRIT 39.3 % (35.0-45.0); HEMOGLOBIN 13.1 g/dl (12.0-16.0); LYMPHOCYTES # (AUTO) 1.6 X10'3 (1.1-4.8); LYMPHOCYTES % (AUTO) 17.4 % (21-51); MEAN CORPUSCULAR HEMOGLOBIN 30.9 PG (27.0-31.0); MEAN CORPUSCULAR HGB CONC 33.2 % (33.0-36.5); MEAN CORPUSCULAR VOLUME 92.9 FL (78-98); MEAN PLATELET VOLUME 8.6 FL (7.4-10.4); MONOCYTES # (AUTO) 0.6 X10'3 (0-0.9); NEUTROPHILS # (AUTO) 6.6 X10'3 (1.8-7.7); NEUTROPHILS % (AUTO) 71.7 % (42-75); PLATELET COUNT 210 X10'3 (140-440); RED BLOOD COUNT 4.23 X10'6 (4.20-5.60); RED CELL DISTRIBUTION WIDTH 15.2 % (11.5-14.5); WHITE BLOOD COUNT 9.2 X10'3 (4.5-11.0)
[2017-07-09 06:27] LABS: ALANINE AMINOTRANSFERASE 16 U/L (12-78); ALBUMIN 2.4 G/DL (3.4-5.0); ALBUMIN/GLOBULIN RATIO 0.5 (1.1-1.5); ALKALINE PHOSPHATASE 154 IU/L (46-116); ANION GAP 9 (8-16); ASPARTATE AMINO TRANSFERASE 17 U/L (10-37); BILIRUBIN,TOTAL 0.2 MG/DL (0.1-1.0); BLOOD UREA NITROGEN 18 MG/DL (7-18); CALCIUM 8.8 MG/DL (8.5-10.1); CHLORIDE 105 MMOL/L (99-107); CREATININE 0.62 MG/DL (0.40-0.90); GLUCOSE 125 MG/DL (70-104); MAGNESIUM 1.9 MG/DL (1.5-2.4); PHOSPHORUS 3.5 MG/DL (2.3-4.5); POTASSIUM 3.8 MMOL/L (3.5-5.1); SODIUM 141 MMOL/L (135-145); TOTAL CARBON DIOXIDE 26.6 MMOL/L (24-32); TOTAL PROTEIN 7.5 G/DL (6.4-8.2); eGFR > 90 ML/MIN
[2017-07-09 07:00] VITALS: BP 160/81
[2017-07-09] MEDS: K and/or MAG REPLACEMENT MC SCH (08:00)
[2017-07-09] MEDS: docusate sod 250mg capsule PO SCH ×2 (08:00→21:00)
[2017-07-09] MEDS: lurasidone 60mg tablet PO SCH (08:00)
[2017-07-09] MEDS: fluconazole 100mg tablet PO SCH (08:00)
[2017-07-09] MEDS: polyethylene glycol 3350 17gm powd pack PO SCH (08:00)
[2017-07-09] MEDS: citalopram 20mg tablet PO SCH (08:00)
[2017-07-09] MEDS: levetiracetam 250mg tablet PO SCH ×3 (08:00→21:00)
[2017-07-09] MEDS: gabapentin 300mg capsule PO SCH ×3 (08:00→21:00)
[2017-07-09] MEDS: diazepam 5mg tablet PO SCH (08:00)
[2017-07-09] MEDS: QUETIAPINE 150 MG TAB.SR.24H PO SCH (08:00)
[2017-07-09] MEDS: methenamine hippurate 1gm tablet PO SCH ×2 (08:00→21:00)
[2017-07-09] MEDS: metoprolol tartrate 25mg tablet PO SCH ×3 (08:00→21:00)
[2017-07-09] MEDS: lactobacillus rhamnosus 10,000 MMU CELLS/CAPSULE PO SCH (08:00)
[2017-07-09] MEDS: Protein Shake (high protein) 240ml (8oz) cup PO SCH ×3 (08:00→19:00)
[2017-07-09] MEDS: nystatin 15 GM powder TP SCH ×3 (08:55→20:50)
[2017-07-09] MEDS: ziprasidone IM 20mg inj **IM only IM SCH ×2 (08:56→20:44)
[2017-07-09] MEDS: heparin, porcine 5000 units/ml vial SQ SCH ×2 (08:57→20:42)
[2017-07-09] MEDS: pantoprazole 40 MG vial IV SCH ×2 (08:58→20:46)
[2017-07-09] MEDS: levoFLOXACIN-Levaquin 750MG/D5 150 ML IV SCH (10:15)
[2017-07-09 20:00] VITALS: BP 186/100
[2017-07-09 20:30] VITALS: BP 159/97
[2017-07-09] MEDS: quetiapine 100mg tablet PO SCH (21:00)
[2017-07-09 23:00] VITALS: BP 180/87
[2017-07-09 23:15] VITALS: BP 162/70
[2017-07-10] MEDS: metroNIDAZOLE-Flagyl 500mg/NS 100 ML IV SCH ×3 (01:37→17:26)
[2017-07-10 07:00] VITALS: BP 139/80
[2017-07-10 07:12] LABS: ALBUMIN 2.5 G/DL (3.4-5.0); ANION GAP 9 (8-16); BLOOD UREA NITROGEN 22 MG/DL (7-18); BUN/CREATININE RATIO 37.3 (6.6-38.0); CALCIUM 8.8 MG/DL (8.5-10.1); CHLORIDE 103 MMOL/L (99-107); CREATININE 0.59 MG/DL (0.40-0.90); GLUCOSE 124 MG/DL (70-104); POTASSIUM 4.4 MMOL/L (3.5-5.1); PREALBUMIN 17.5 MG/DL (19-36); SODIUM 138 MMOL/L (135-145); TOTAL CARBON DIOXIDE 26.5 MMOL/L (24-32); eGFR > 90 ML/MIN
[2017-07-10] MEDS: levoFLOXACIN-Levaquin 750MG/D5 150 ML IV SCH (07:54)
[2017-07-10] MEDS: nystatin 15 GM powder TP SCH ×3 (07:59→22:17)
[2017-07-10] MEDS: fluconazole 100mg tablet PO SCH (08:00)
[2017-07-10] MEDS: levetiracetam 250mg tablet PO SCH ×4 (08:00→21:00)
[2017-07-10] MEDS: diazepam 5mg tablet PO SCH (08:00)
[2017-07-10] MEDS: QUETIAPINE 150 MG TAB.SR.24H PO SCH (08:00)
[2017-07-10] MEDS: docusate sod 250mg capsule PO SCH ×2 (08:00→22:12)
[2017-07-10] MEDS: citalopram 20mg tablet PO SCH (08:00)
[2017-07-10] MEDS: lactobacillus rhamnosus 10,000 MMU CELLS/CAPSULE PO SCH (08:00)
[2017-07-10] MEDS: metoprolol tartrate 25mg tablet PO SCH ×2 (08:00→22:12)
[2017-07-10] MEDS: polyethylene glycol 3350 17gm powd pack PO SCH (08:00)
[2017-07-10] MEDS: gabapentin 300mg capsule PO SCH ×3 (08:00→22:15)
[2017-07-10] MEDS: Protein Shake (high protein) 240ml (8oz) cup PO SCH ×3 (08:00→18:56)
[2017-07-10] MEDS: methenamine hippurate 1gm tablet PO SCH ×2 (08:00→22:13)
[2017-07-10] MEDS: lurasidone 60mg tablet PO SCH (08:00)
[2017-07-10] MEDS: K and/or MAG REPLACEMENT MC SCH (08:00)
[2017-07-10] MEDS: pantoprazole 40 MG vial IV SCH ×2 (08:09→21:59)
[2017-07-10] MEDS: heparin, porcine 5000 units/ml vial SQ SCH ×2 (08:24→22:00)
[2017-07-10] MEDS: ziprasidone IM 20mg inj **IM only IM SCH ×2 (08:27→21:59)
[2017-07-10 11:00] VITALS: BP 139/80
[2017-07-10] MEDS ORDERED: hydrALAZINE 20mg/ml inj. IV PRN (11:45)
[2017-07-10 12:00] VITALS: BP 159/108
[2017-07-10] MEDS ORDERED: Dextrose 10%-water IV solution 1,000 ML IV SCH (17:55)
[2017-07-10 20:00] VITALS: BP 162/87
[2017-07-10] MEDS: quetiapine 100mg tablet PO SCH (22:16)
[2017-07-11] VITALS: BP 158/77
[2017-07-11] MEDS: metroNIDAZOLE-Flagyl 500mg/NS 100 ML IV SCH ×3 (00:29→16:40)
[2017-07-11 05:39] LABS: BASOPHILS % (AUTO) 0.2 % (0-1); EOSINOPHILS # (AUTO) 0.5 X10'3 (0-0.9); EOSINOPHILS % (AUTO) 4.5 % (0-6); HEMATOCRIT 39.3 % (35.0-45.0); HEMOGLOBIN 13.1 g/dl (12.0-16.0); LYMPHOCYTES # (AUTO) 1.7 X10'3 (1.1-4.8); LYMPHOCYTES % (AUTO) 14.5 % (21-51); MEAN CORPUSCULAR HEMOGLOBIN 31.2 PG (27.0-31.0); MEAN CORPUSCULAR HGB CONC 33.5 % (33.0-36.5); MEAN CORPUSCULAR VOLUME 93.1 FL (78-98); MEAN PLATELET VOLUME 8.7 FL (7.4-10.4); MONOCYTES # (AUTO) 0.6 X10'3 (0-0.9); MONOCYTES % (AUTO) 4.8 % (2-12); NEUTROPHILS # (AUTO) 8.8 X10'3 (1.8-7.7); PLATELET COUNT 187 X10'3 (140-440); RED BLOOD COUNT 4.22 X10'6 (4.20-5.60); RED CELL DISTRIBUTION WIDTH 15.7 % (11.5-14.5); WHITE BLOOD COUNT 11.6 X10'3 (4.5-11.0)
[2017-07-11 05:47] LABS: ALBUMIN 2.7 G/DL (3.4-5.0); ANION GAP 8 (8-16); BLOOD UREA NITROGEN 23 MG/DL (7-18); BUN/CREATININE RATIO 37.7 (6.6-38.0); CALCIUM 9.2 MG/DL (8.5-10.1); CHLORIDE 104 MMOL/L (99-107); CREATININE 0.61 MG/DL (0.40-0.90); GLUCOSE 135 MG/DL (70-104); POTASSIUM 4.5 MMOL/L (3.5-5.1); SODIUM 140 MMOL/L (135-145); TOTAL CARBON DIOXIDE 27.6 MMOL/L (24-32); eGFR > 90 ML/MIN
[2017-07-11 07:38] VITALS: BP 152/82
[2017-07-11] MEDS: levetiracetam 250mg tablet PO SCH ×3 (08:00→20:39)
[2017-07-11] MEDS: nystatin 15 GM powder TP SCH ×3 (08:00→21:03)
[2017-07-11] MEDS: QUETIAPINE 150 MG TAB.SR.24H PO SCH (08:00)
[2017-07-11] MEDS: methenamine hippurate 1gm tablet PO SCH ×2 (08:00→20:00)
[2017-07-11] MEDS: fluconazole 100mg tablet PO SCH (08:00)
[2017-07-11] MEDS: polyethylene glycol 3350 17gm powd pack PO SCH (08:00)
[2017-07-11] MEDS: metoprolol tartrate 25mg tablet PO SCH ×2 (08:00→20:00)
[2017-07-11] MEDS: lactobacillus rhamnosus 10,000 MMU CELLS/CAPSULE PO SCH (08:00)
[2017-07-11] MEDS: Protein Shake (high protein) 240ml (8oz) cup PO SCH ×3 (08:00→19:00)
[2017-07-11] MEDS: citalopram 20mg tablet PO SCH (08:00)
[2017-07-11] MEDS: K and/or MAG REPLACEMENT MC SCH (08:00)
[2017-07-11] MEDS: lurasidone 60mg tablet PO SCH (08:00)
[2017-07-11] MEDS: gabapentin 300mg capsule PO SCH ×3 (08:00→20:39)
[2017-07-11] MEDS: diazepam 5mg tablet PO SCH (08:00)
[2017-07-11] MEDS: docusate sod 250mg capsule PO SCH ×2 (08:00→20:00)
[2017-07-11] MEDS: levoFLOXACIN-Levaquin 750MG/D5 150 ML IV SCH (10:26)
[2017-07-11] MEDS: pantoprazole 40 MG vial IV SCH ×2 (10:27→21:02)
[2017-07-11] MEDS: heparin, porcine 5000 units/ml vial SQ SCH ×2 (10:33→21:03)
[2017-07-11 11:00] VITALS: BP 160/87
[2017-07-11] MEDS: ziprasidone IM 20mg inj **IM only IM SCH ×2 (11:32→20:55)
[2017-07-11 20:00] VITALS: BP 157/83
[2017-07-11] MEDS: quetiapine 100mg tablet PO SCH (20:40)
[2017-07-12] VITALS: BP 158/74
[2017-07-12] MEDS: metroNIDAZOLE-Flagyl 500mg/NS 100 ML IV SCH ×3 (00:39→16:00)
[2017-07-12 05:12] LABS: BASOPHILS % (AUTO) 0.2 % (0-1); EOSINOPHILS # (AUTO) 0.5 X10'3 (0-0.9); EOSINOPHILS % (AUTO) 3.5 % (0-6); HEMATOCRIT 37.8 % (35.0-45.0); HEMOGLOBIN 12.7 g/dl (12.0-16.0); LYMPHOCYTES # (AUTO) 1.9 X10'3 (1.1-4.8); LYMPHOCYTES % (AUTO) 13.6 % (21-51); MEAN CORPUSCULAR HEMOGLOBIN 31.1 PG (27.0-31.0); MEAN CORPUSCULAR HGB CONC 33.6 % (33.0-36.5); MEAN CORPUSCULAR VOLUME 92.7 FL (78-98); MEAN PLATELET VOLUME 8.3 FL (7.4-10.4); MONOCYTES # (AUTO) 0.6 X10'3 (0-0.9); NEUTROPHILS # (AUTO) 11.2 X10'3 (1.8-7.7); NEUTROPHILS % (AUTO) 78.7 % (42-75); PLATELET COUNT 173 X10'3 (140-440); RED BLOOD COUNT 4.08 X10'6 (4.20-5.60); RED CELL DISTRIBUTION WIDTH 16.2 % (11.5-14.5); WHITE BLOOD COUNT 14.3 X10'3 (4.5-11.0)
[2017-07-12 07:12] VITALS: BP 142/81
[2017-07-12] MEDS: methenamine hippurate 1gm tablet PO SCH (08:00)
[2017-07-12] MEDS: diazepam 5mg tablet PO SCH (08:00)
[2017-07-12] MEDS: citalopram 20mg tablet PO SCH (08:00)
[2017-07-12] MEDS: docusate sod 250mg capsule PO SCH (08:00)
[2017-07-12] MEDS: lurasidone 60mg tablet PO SCH (08:00)
[2017-07-12] MEDS: polyethylene glycol 3350 17gm powd pack PO SCH (08:00)
[2017-07-12] MEDS: gabapentin 300mg capsule PO SCH ×2 (08:00→13:52)
[2017-07-12] MEDS: Protein Shake (high protein) 240ml (8oz) cup PO SCH ×2 (08:00→13:00)
[2017-07-12] MEDS: lactobacillus rhamnosus 10,000 MMU CELLS/CAPSULE PO SCH (08:00)
[2017-07-12] MEDS: fluconazole 100mg tablet PO SCH (08:00)
[2017-07-12] MEDS: QUETIAPINE 150 MG TAB.SR.24H PO SCH (08:00)
[2017-07-12] MEDS: metoprolol tartrate 25mg tablet PO SCH (08:00)
[2017-07-12] MEDS: levetiracetam 250mg tablet PO SCH ×2 (08:00→13:52)
[2017-07-12] MEDS: K and/or MAG REPLACEMENT MC SCH (08:00)
[2017-07-12] MEDS: heparin, porcine 5000 units/ml vial SQ SCH (09:54)
[2017-07-12] MEDS: ziprasidone IM 20mg inj **IM only IM SCH (09:54)
[2017-07-12] MEDS: pantoprazole 40 MG vial IV SCH (09:54)
[2017-07-12] MEDS: nystatin 15 GM powder TP SCH ×2 (10:13→13:53)
[2017-07-12 11:00] VITALS: BP 149/77
[2017-07-12] MEDS: levoFLOXACIN-Levaquin 750MG/D5 150 ML IV SCH (11:29)
[2017-07-12 16:48] LABS: CLARITY,URINE CLEAR (Clear); GLUCOSE, URINE NEGATIVE (Neg); KETONES,URINE NEGATIVE (Neg); LEUKOCYTE ESTERASE ,URINE NEGATIVE (Neg); NITRITES, URINE POSITIVE (Neg); OCCULT BLOOD,URINE LARGE (Neg); PH,URINE 5.5 (4.8-8.0); PROTEIN,URINE 30 mg/dl (Neg); UROBILINOGEN,URINE 0.2 E.U/dL (0.2-1.0)
[2017-07-12 16:56] LABS: COLOR,URINE AMBER (Yellow); UA COLLECTION TYPE NON-SPECIFIED
[2017-07-12 16:58] LABS: WBC,URINE 0-4 /HPF (0-4)
[2017-07-12 16:59] LABS: BACTERIA,URINE NONE SEEN /HPF (Neg); SQUAMOUS EPITHELIAL CELL,UR FEW /LPF (FEW)
== END 2017-07-12 16:55 | disposition home health service (06) | DRG 871 ==
LOC: ER 17:22 → ED HOLD 20:24 → SUR 3N 07-01 10:00
PROVIDERS: ADMIT Internal Medicine; ATTEND Family Medicine
PROC: 0DB38ZX Excision of Lower Esophagus, Via Natural or Artificial Opening Endoscopic, Diagnostic (ICD-10-PCS; principal; 2017-07-04)
PROC: 0D748ZZ Dilation of Esophagogastric Junction, Via Natural or Artificial Opening Endoscopic (ICD-10-PCS; 2017-07-04)
DX: A41.9 Sepsis, unspecified organism (principal); J69.0 Pneumonitis due to inhalation of food and vomit; J96.01 Acute respiratory failure with hypoxia; N17.9 Acute kidney failure, unspecified; E87.0 Hyperosmolality and hypernatremia; K22.10 Ulcer of esophagus without bleeding; K22.0 Achalasia of cardia; K22.2 Esophageal obstruction; E86.0 Dehydration; E03.9 Hypothyroidism, unspecified; F31.9 Bipolar disorder, unspecified; F20.9 Schizophrenia, unspecified; F79 Unspecified intellectual disabilities; G40.909 Epilepsy, unspecified, not intractable, without status epilepticus; I10 Essential (primary) hypertension; F41.9 Anxiety disorder, unspecified; K21.0 Gastro-esophageal reflux disease with esophagitis; Z51.5 Encounter for palliative care; Z66 Do not resuscitate; Z90.49 Acquired absence of other specified parts of digestive tract; Z99.3 Dependence on wheelchair; Z78.1 Physical restraint status; Z88.2 Allergy status to sulfonamides; Z88.1 Allergy status to other antibiotic agents; Z87.01 Personal history of pneumonia (recurrent); Z87.19 Personal history of other diseases of the digestive system
CPT/HCPCS: 36415; 43239; 43249; 71045; 71046; 80048; 80053; 81001; 82948; 83605; 83735; 84100; 84132; 84134; 84145; 84478; 85025; 87040; 87070; 87088; 88305; 90732; 92616; 94640; 94760; 96365; 97110; 97161; 97530; 99285; A4353; A4620; A4649; A6212; A6213; A6258; C1726; C9113; G0500; J0610; J1630; J1644; J1956; J2060; J2250; J2543; J3010; J3475; J3480; J3486; J3490; J7030; J7070; J7131